=== PATIENT | female | born 1995 | race Caucasian/White ===

== ENCOUNTER 2018-03-18 13:57 | Emergency (ER) | payer OTHER ==
[2018-03-18 14:21] VITALS: BP 113/76
--- NOTE | 2018-03-18 14:44 | UC ---
Lower Extremity/Ankle HPI - HPI Summary HPI Summary: Pt c/o right ankle and foot pain s/p having right foot hit by heavy, pointed metal object last night. Pt c/o bruising and pain at site of injury. - History of Current Complaint Chief Complaint: UCLowerExtremity Stated Complaint: WC-RT ANKLE INJURY Time Seen by Provider: 03/18/18 14:01 Hx Obtained From: Patient Hx Last Menstrual Period: 03/04/18 ?: No Onset/Duration: Sudden Onset, Still Present Severity Initially: Moderate Severity Currently: Moderate Pain Intensity: 7 Aggravating Factor(s): Standing, Ambulation Alleviating Factor(s): Rest, Elevation, Ice Able to Bear Weight: Yes - Risk Factors Gout Risk Factors: Negative DVT Risk Factors: Negative Septic Arthritis Risk Factor: Negative - Allergies/Home Medications Allergies/Adverse Reactions: Allergies Allergy/AdvReac Type Severity Reaction Status Date / Time No Known Allergies Allergy Verified 03/18/18 14:10 Home Medications: Home Medications Albuterol HFA INHALER* [Ventolin HFA Inhaler*] 2 puff INH Q4H PRN 03/18/18 [ History Confirmed 03/18/18] Escitalopram Oxalate [Lexapro] 5 mg PO DAILY 03/18/18 [History Confirmed ] Ibuprofen TAB* [Advil TAB*] 400 mg PO Q6H PRN 03/18/18 [History Confirmed ] Loratadine [Claritin 10 MG CAP] 10 mg PO DAILY 03/18/18 [History Confirmed 03/18] PMH/Surg Hx/FS Hx/Imm Hx Previously Healthy: Yes - Surgical History Surgical History: None - Family History Known Family History: Positive: Cardiac Disease - Social History Occupation: Employed Full-time, Student Lives: With Family Alcohol Use: None Substance Use Type: None Smoking Status (MU): Never Smoked Tobacco Have You Smoked in the Last Year: No Review of Systems Constitutional: Negative Skin: Bruising - right mid medial foot Eyes: Negative ENT: Negative Respiratory: Negative Cardiovascular: Negative Gastrointestinal: Negative Genitourinary: Negative Motor: Negative Neurovascular: Negative Musculoskeletal: Arthralgia - right medial, mid foot., Myalgia Neurological: Negative Psychological: Negative Is Patient Immunocompromised?: No All Other Systems Reviewed And Are Negative: Yes Physical Exam Triage Information Reviewed: Yes Appearance: Well-Appearing Vital Signs: Initial Vital Signs Temp 99.3 F 03/18/18 14:12 Pulse 70 03/18/18 14:12 Resp 18 03/18/18 14:12 BP 113/76 03/18/18 14:12 Pulse Ox 100 03/18/18 14:12 Vital Signs Reviewed: Yes Eye Exam: Normal ENT: Positive: Hearing grossly normal Dental Exam: Normal Neck exam: Normal Respiratory Exam: Normal Musculoskeletal Exam: Other Musculoskeletal: Positive: Edema @ - right mid medial foot Neurological Exam: Normal Psychological Exam: Normal Skin: Positive: Other - bruising, right mid medial foot. Diagnostics - Radiology No standard instances Radiology Interpretation Completed By: Radiologist - IMPRESSION: No fracture of the right foot is noted. Lower Extremity Course/Dx - Course Course Of Treatment: Pt sates she is UTD with tetanus vaccine. - Differential Dx/Diagnosis Differential Diagnosis/HQI/PQRI: Contusion, Fracture (Closed), Infection, Sprain , Strain Provider Diagnoses: right foot contusion Discharge - Sign-Out/Discharge Documenting (check all that apply): Discharge/Admit/Transfer - Discharge Plan Condition: Stable Disposition: HOME Patient Education Materials: Foot Contusion (ED) Referrals: [facility] [Outside] Non Staff,Doctor [Primary Care Provider] - - Billing Disposition and Condition Condition: STABLE Disposition: Home
--- NOTE | 2018-03-18 14:56 | RAD ---
Indication: Right foot pain. 3 views of the right foot demonstrates no fracture. No other bone or joint abnormality is noted. IMPRESSION: No fracture of the right foot is noted.
== END 2018-03-18 15:09 | disposition home or self-care (01) ==
LOC: UCCORT 13:57
DX: S90.31XA Contusion of right foot, initial encounter (principal); W22.8XXA Striking against or struck by other objects, initial encounter; Y93.9 Activity, unspecified; Y92.9 Unspecified place or not applicable
CPT/HCPCS: 99202; G0463